=== PATIENT | female | born 1990 | race Caucasian/White ===

== ENCOUNTER → 2017-05-07 | Outpatient (CLI) | payer OTHER ==
[~2017-05-07] MED LIST: BENZ100A PO; CODGUAEL PO; DOXY100 PO; IBUP200 PO; IBUP800 PO; OXYACE5T PO; RXALBOI INH; RXCODGUASY PO; Verotin-Gr Cap1 EACH PO
== END | disposition home or self-care (01) ==
LOC: LAB 13:44
DX: Z36.85 Encounter for antenatal screening for Streptococcus B (principal)
CPT/HCPCS: 87081; 87653

== ENCOUNTER 2017-06-02 02:20 | Inpatient (IN) | payer OTHER ==
[~2017-06-02] VITALS: Ht 165.1 cm; Wt 102.5 kg
[~2017-06-02 02:20] MED LIST changes: -Verotin-Gr Cap1 EACH PO
[2017-06-02] MEDS ORDERED: Verotin-Gr Cap1 EACH PO (02:57)
[2017-06-02 03:01] LABS: BASOPHILS ABSOLUTE AUTO 0.03 K/mm3 (0.00-0.23); BASOPHILS PERCENT AUTO 0 % (0-2); EOSINOPHILS ABSOLUTE AUTO 0.13 K/mm3 (0.00-0.68); EOSINOPHILS PERCENT AUTO 1 % (0-6); Hematocrit 38.2 % (33.0-51.0); Hemoglobin 13.2 g/dL (11.5-16.0); IMMATURE GRAN ABSOLUTE AUTO 0.07 K/mm3 (0.00-0.10); IMMATURE GRAN PERCENT AUTO 1 % (0-1); LYMPHOCYTES ABSOLUTE AUTO 3.13 K/mm3 (0.84-5.20); LYMPHOCYTES PERCENT AUTO 26 % (21-46); MONOCYTES PERCENT AUTO 7 % (4-13); Mean Corpuscular HGB 30.3 pg (26.0-34.0); Mean Corpuscular HGB Conc 34.6 g/dL (31.5-36.5); Mean Corpuscular Volume 88 fL (80-100); Mean Platelet Volume 10.7 fL (9.1-12.4); NEUTROPHILS PERCENT AUTO 66 % (41-73); Platelet Count 184 K/mm3 (150-400); RDW Coefficient Variation 13.6 % (11.7-14.2); RDW Standard Deviation 42.3 fL (35.1-46.3); Red Blood Cell Count 4.36 M/mm3 (3.80-5.20); White Blood Cell Count 12.26 K/mm3 (4.00-11.30)
[2017-06-03 06:29] LABS: Hematocrit 32.5 % (33.0-51.0); Hemoglobin 11.1 g/dL (11.5-16.0); Mean Corpuscular HGB 30.4 pg (26.0-34.0); Mean Corpuscular HGB Conc 34.2 g/dL (31.5-36.5); Mean Corpuscular Volume 89 fL (80-100); Mean Platelet Volume 10.8 fL (9.1-12.4); Platelet Count 165 K/mm3 (150-400); RDW Coefficient Variation 13.7 % (11.7-14.2); RDW Standard Deviation 44.6 fL (35.1-46.3); Red Blood Cell Count 3.65 M/mm3 (3.80-5.20); White Blood Cell Count 10.38 K/mm3 (4.00-11.30)
[2017-06-03] MEDS ORDERED: IBUP800 PO (09:19)
== END 2017-06-03 10:32 | disposition home or self-care (01) | DRG 775 ==
LOC: OBS 02:20 → BC 02:20 → OBS 02:44 → BC 02:46
PROVIDERS: Obstetrics & Gynecology
PROC: 10E0XZZ Delivery of Products of Conception, External Approach (ICD-10-PCS; principal; 2017-06-02)
PROC: 10907ZC Drainage of Amniotic Fluid, Therapeutic from Products of Conception, Via Natural or Artificial Opening (ICD-10-PCS; 2017-06-02)
DX: O77.0 Labor and delivery complicated by meconium in amniotic fluid (principal); F17.200 Nicotine dependence, unspecified, uncomplicated; O69.81X0 Labor and delivery complicated by cord around neck, without compression, not applicable or unspecified; O99.334 Smoking (tobacco) complicating childbirth; Z37.0 Single live birth; Z3A.39 39 weeks gestation of pregnancy; Z88.5 Allergy status to narcotic agent
CPT/HCPCS: 36415; 85025; 85027; 85460; 96372; J1885; J2590; J2790; J7120

== ENCOUNTER → 2019-05-15 | Outpatient (CLI) | payer OTHER ==
[~2019-05-15] MED LIST changes: +Verotin-Gr Cap1 EACH PO
== END ==
LOC: LAB SHORT 15:31 → LAB EV 15:31
DX: J02.9 Acute pharyngitis, unspecified (principal)
CPT/HCPCS: 87081

== ENCOUNTER 2020-09-03 19:11 | Emergency (ER) | payer OTHER ==
[~2020-09-03] VITALS: Ht 165.1 cm; Wt 99.4 kg
[2020-09-03] MEDS ORDERED: ONDA4ODT MM (22:20)
== END 2020-09-03 22:32 | disposition home or self-care (01) ==
LOC: ER 19:11
DX: R11.2 Nausea with vomiting, unspecified (principal); R51.9 Headache, unspecified; F17.210 Nicotine dependence, cigarettes, uncomplicated
CPT/HCPCS: 99283; A9270

== ENCOUNTER 2022-07-09 05:04 | Emergency (ER) | payer OTHER ==
[~2022-07-09] VITALS: Ht 170.2 cm; Wt 99.8 kg
[~2022-07-09 05:04] MED LIST changes: +ONDA4ODT MM
[2022-07-09 05:23] VITALS: BP 144/90
== END 2022-07-09 06:18 | disposition home or self-care (01) ==
LOC: ER 05:04
DX: J06.9 Acute upper respiratory infection, unspecified (principal); R09.1 Pleurisy; F17.210 Nicotine dependence, cigarettes, uncomplicated
CPT/HCPCS: 71046; 99283-25; A9270

== ENCOUNTER 2022-08-03 02:23 | Emergency (ER) | payer OTHER ==
[~2022-08-03] VITALS: Ht 165.1 cm; Wt 102.5 kg
[2022-08-03 04:14] VITALS: BP 132/83
== END 2022-08-03 04:25 | disposition home or self-care (01) ==
LOC: ER 02:23
DX: J98.8 Other specified respiratory disorders (principal); B97.89 Other viral agents as the cause of diseases classified elsewhere; F17.210 Nicotine dependence, cigarettes, uncomplicated; Z88.5 Allergy status to narcotic agent
CPT/HCPCS: 87081; 87430; 99283; A9270

== ENCOUNTER → 2023-02-18 | Outpatient (CLI) | payer OTHER ==
[2023-03-02 07:58] LABS: HPV GENOTYPE 16 Not Detected; HPV GENOTYPE 18 Not Detected; HPV HIGH RISK Not Detected; HPV SOURCE Cervical
== END ==
LOC: LAB SHORT 17:03 → LAB 17:03
PROVIDERS: Advanced Practice Midwife
DX: Z01.419 Encounter for gynecological examination (general) (routine) without abnormal findings (principal)
CPT/HCPCS: 87624; G0123

== ENCOUNTER → 2023-03-29 | Outpatient (CLI) | payer OTHER | END | disposition home or self-care (01) | LOC: LAB 19:26 → LAB SHORT 19:26 | DX: R30.0 Dysuria (principal) | CPT/HCPCS: 87086 ==

== ENCOUNTER 2024-03-03 14:29 | Emergency (ER) | payer OTHER ==
[~2024-03-03] VITALS: Ht 165.1 cm; Wt 93.9 kg
[2024-03-03 15:27] VITALS: BP 167/91
[2024-03-03] MEDS ORDERED: ALBU90OI INH (16:42)
== END 2024-03-03 16:57 | disposition home or self-care (01) ==
LOC: ER 14:29
DX: J06.9 Acute upper respiratory infection, unspecified (principal); F17.210 Nicotine dependence, cigarettes, uncomplicated; Z88.5 Allergy status to narcotic agent; Z59.89 Other problems related to housing and economic circumstances
CPT/HCPCS: 71046; 99283-25

== ENCOUNTER 2025-01-09 00:37 | Emergency (ER) | payer OTHER ==
[~2025-01-09] VITALS: Ht 165.1 cm; Wt 90.7 kg
[~2025-01-09 00:37] MED LIST changes: +ALBU90OI INH
[2025-01-09] MEDS ORDERED: CEPH500 PO (02:14)
[2025-01-09 02:37] VITALS: BP 133/100
== END 2025-01-09 02:37 | disposition home or self-care (01) ==
LOC: ER 00:37
DX: S91.331A Puncture wound without foreign body, right foot, initial encounter (principal); F17.210 Nicotine dependence, cigarettes, uncomplicated; W45.0XXA Nail entering through skin, initial encounter; Z88.5 Allergy status to narcotic agent
CPT/HCPCS: 99283; A9270

== ENCOUNTER → 2025-01-16 | Outpatient (CLI) | payer OTHER | LOC: LAB 12:32 | DX: N39.0 Urinary tract infection, site not specified (principal); R31.9 Hematuria, unspecified ==

== ENCOUNTER → 2025-01-22 | Outpatient (CLI) | payer OTHER ==
[~2025-01-22] MED LIST changes: +AMOCLA875 PO; +CEPH500 PO
[2025-01-23 11:40] LABS: Bacterial Vaginosis PCR Negative (NEGATIVE); Candida Group, PCR NOT DETECTED (NOT DETECT); Candida glabrata-krusei, PCR NOT DETECTED (NOT DETECT)
[2025-01-23 12:02] LABS: Chlamydia Trachomatis Vaginal NOT DETECTED (NOT DETECT); Neisseria Gonorrhoea Vaginal NOT DETECTED (NOT DETECT)
== END ==
LOC: LAB SHORT 14:57 → LAB 14:57
DX: N89.8 Other specified noninflammatory disorders of vagina (principal)
CPT/HCPCS: 81515; 87491; 87591

== ENCOUNTER → 2025-01-22 | Outpatient (CLI) | payer OTHER | LOC: LAB SHORT 15:29 → LAB 15:29 | DX: R30.0 Dysuria (principal) | CPT/HCPCS: 87086 ==

== ENCOUNTER 2025-01-24 | Emergency (ER) | payer OTHER ==
[~2025-01-24] VITALS: Ht 165.1 cm; Wt 89.8 kg
[~2025-01-24] MED LIST changes: -AMOCLA875 PO
[2025-01-24] MEDS ORDERED: Rabies Vaccine (Pcec)/Pf 1 mL 2.5 Unit Kit IM ONE (01:00)
[2025-01-24] MEDS ORDERED: Rabies Immune Globulin 150 IU / ML 2ML Vial IM ONE (01:00)
[2025-01-24] MEDS ORDERED: AMOCLA875 PO (01:03)
[2025-01-24] MEDS ORDERED: Rabies Immune Globulin/Pf 300 Unit/ML 1ML Vial IM ONE (01:35)
[2025-01-24 02:45] VITALS: BP 152/82
== END 2025-01-24 03:00 | disposition home or self-care (01) ==
LOC: ER
DX: S41.152A Open bite of left upper arm, initial encounter (principal); S41.052A Open bite of left shoulder, initial encounter; S71.151A Open bite, right thigh, initial encounter; S00.81XA Abrasion of other part of head, initial encounter; F17.210 Nicotine dependence, cigarettes, uncomplicated; W54.0XXA Bitten by dog, initial encounter; Z88.5 Allergy status to narcotic agent
CPT/HCPCS: 90375; 90376; 90471; 96372; 99283-25; A9270